=== PATIENT | female | born 1945 | race Two or more races ===

== ENCOUNTER 2017-11-23 09:45 | Emergency (ER) | payer MEDICARE, OTHER ==
[~2017-11-23] VITALS: Ht 167.6 cm; Wt 83.9 kg
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
[2017-11-23] MEDS ORDERED: ONDANSETRON HCL/PF - ER 4 MG/2 ML VIAL IV ONE (10:00)
[2017-11-23] MEDS ORDERED: MORPHINE SULFATE INJ 2 MG/ML DISP.SYRIN IV ONE ×2 (10:00→11:30)
[2017-11-23] MEDS ORDERED: MORPHINE SULFATE INJ 4 MG/ML DISP.SYRIN ONE ×2 (10:04→11:07)
[2017-11-23] MEDS ORDERED: ONDANSETRON HCL/PF 4 MG/2 ML VIAL ONE (10:04)
--- NOTE | 2017-11-23 10:10 | NUR ---
NEW IV STARTED ON LAC, 20G. PATIENT MEDICATED PER MD ORDERS.
[2017-11-23] MEDS ORDERED: PROPOFOL 200 MG/20 ML VIAL IV ONE (11:00)
[2017-11-23] MEDS ORDERED: IV NS 0.9% 500 ML IV ONE (11:00)
[2017-11-23] MEDS ORDERED: PROPOFOL 0 ML ONE (11:04)
[2017-11-23] MEDS ORDERED: PROPOFOL 20 ML IV ONE (11:05)
--- NOTE | 2017-11-23 11:13 | NUR ---
MD AT BEDSIDE FOR CLOSED REDUCTION OF RIGHT SHOULDER UNDER MODERATE SEDATION.
--- NOTE | 2017-11-23 13:24 | NUR ---
IV removed. Catheter intact and site benign. Pressure and 4x4 applied to site. No bleeding noted. Patient discharged to home in stable condition. Written and verbal after care instructions given. Patient verbalizes understanding of instruction.
[2017-11-23 13:26] VITALS: BP 156/82
== END 2017-11-23 13:27 | disposition home or self-care (01) ==
LOC: ER 09:48
DX: S43.004A Unspecified dislocation of right shoulder joint, initial encounter (principal); I10 Essential (primary) hypertension; W01.0XXA Fall on same level from slipping, tripping and stumbling without subsequent striking against object, initial encounter; Y93.89 Activity, other specified; Y92.481 Parking lot as the place of occurrence of the external cause; Y99.8 Other external cause status
CPT/HCPCS: 23650; 73020; 73030; 96374; 96375; 96376; 99152; 99285; A4606; J2270 ×2; J2405 ×2; J2704; J7030; J3490; Z7610